=== PATIENT | female | born 1965 | race Caucasian/White ===

== ENCOUNTER → 2017-02-14 | Outpatient (CLI) | payer OTHER ==
--- NOTE | 2017-02-14 13:51 | REP ---
Clinical: Pain. Technique: Mcleod scale and color Doppler evaluation using linear high frequency transducer. Findings: Ultrasound examination of the right and left lower extremity deep venous structures from the common femoral vein to the popliteal vein demonstrates normal compressibility flow and wave patterns in response to respiration and augmentation. There is no evidence for deep venous thrombosis. The patient refused the reflux portion of the examination, stating that she is no symptoms related to varicosities and was only concern for thrombus. Impression: No evidence for deep venous thrombosis. Signed by Senthil Cuellar MD 02/14/2017 01:43 P
== END ==
LOC: M RAD 12:21
PROVIDERS: ATTEND Nurse Practitioner Family
DX: I86.8 Varicose veins of other specified sites (principal)

== ENCOUNTER → 2022-02-14 | Outpatient (CLI) | payer BC | LOC: M LABSMTC 09:45 | DX: Z01.818 Encounter for other preprocedural examination (principal); Z11.52 Encounter for screening for COVID-19 ==